=== PATIENT | female | born 1935 | race Two or more races ===

== ENCOUNTER 2019-08-21 09:22 | Emergency (ER) | payer MEDICARE, OTHER ==
[~2019-08-21] VITALS: Ht 154.9 cm; Wt 51.0 kg
--- NOTE | 2019-08-21 09:57 | NUR ---
PT MOVED TO ROOM
[2019-08-21] MEDS ORDERED: ALBUTEROL/IPRATROPIUM 2.5MG/0.5MG, 3 ML NEB ONE (10:30)
--- NOTE | 2019-08-21 10:42 | NUR ---
pt to ed for sob x2 weeks. pt was seen at for same approx 4 days ago and was dx with pna. she was told if she didn't start to feel better in 5 days, to go to the ed. pt states she hasn't been getting worse, but isn't getting better. pt connected to monitors. vss. resident to bs for assessment and orders received. labs drawn, xr complete and pt medicated per mar. no needs expressed. awaiting resutls.
[2019-08-21 10:47] LABS: BASOPHILS # (AUTO) 0.02 x10^3/uL (0-0.1); BASOPHILS % (AUTO) 0 % (0-1); EOSINOPHILS # (AUTO) 0.03 x10^3/uL (0-0.4); EOSINOPHILS % (AUTO) 0 % (1-7); LYMPHOCYTES % (AUTO) 22 % (22-44); MD NO; MEAN CORPUSCULAR HEMOGLOBIN 32.4 pg (27.0-34.8); MEAN CORPUSCULAR HGB CONC 33.2 g/dL (32.4-35.8); MEAN CORPUSCULAR VOLUME 97.5 fL (80-100); MEAN PLATELET VOLUME 6.2 fL (7.4-10.4); MONOCYTES % (AUTO) 9 % (2-9); NEUTROPHILS # (AUTO) 6.06 x10^3/uL (1.8-6.8); NEUTROPHILS % (AUTO) 69 % (42-75); PLATELET COUNT 314 x10^3/uL (130-400); RED BLOOD COUNT 4.48 x10^6/uL (3.82-5.3); RED CELL DISTRIBUTION WIDTH 13.7 % (9.6-15.2)
[2019-08-21 10:58] LABS: ANION GAP 8 mmol/L (5-15); CALCIUM 9.6 mg/dL (8.5-10.1); CHLORIDE 105 mmol/L (98-107)
[2019-08-21 11:04] LABS: ALANINE AMINOTRANSFERASE 29 U/L (12-78); ALKALINE PHOSPHATASE 83 U/L (45-117); BILIRUBIN,TOTAL 0.5 mg/dL (0.2-1.0); CREATININE 1.23 mg/dL (0.55-1.02); TROPONIN I < 0.015 ng/mL (0.000-0.045)
[2019-08-21 11:07] LABS: RAPID INFLUENZA A Negative (Negative); RAPID INFLUENZA B Negative (Negative)
[2019-08-21 11:23] VITALS: BP 132/60
--- NOTE | 2019-08-21 11:23 | NUR ---
pt resting in room with family at bs. vss. no needs expressed. call light within reach. awaiting rt tx.
[2019-08-21] MEDS ORDERED: ALBUTEROL/IPRATROPIUM 2.5MG/0.5MG, 3 ML ONE (11:54)
== END 2019-08-21 12:36 | disposition home or self-care (01) ==
LOC: ED 12:00
DX: J44.1 Chronic obstructive pulmonary disease with (acute) exacerbation (principal)
CPT/HCPCS: 36415; 71046; 80053; 83880; 84484; 85025; 87400; 94640; 99284; J7512; J7620

== ENCOUNTER 2020-03-31 18:20 | Emergency (ER) | payer MEDICARE ==
[~2020-03-31] VITALS: Ht 154.9 cm; Wt 52.3 kg
--- NOTE | 2020-03-31 18:50 | NUR ---
Pt c/o dizziness and nausea since waking up this morning. Pt has hx Vertigo, states this feels similar.Pt in bed in gown with cont spo2, bp q 30 min, side rails upx2, call light in reach, 18g iv in right wrist. pt closing her eyes because the room is spinning. Spinning started at 0700 today, n/v every 30 min.
--- NOTE | 2020-03-31 19:00 | NUR ---
REPORT OF PT FROM IRIS WEBER AND ASSUMING CARE OF PT AT THIS TIME.
[2020-03-31] MEDS ORDERED: ONDANSETRON 2MG/ML, 2ML ONE (19:16)
[2020-03-31] MEDS ORDERED: MECLIZINE CHEWABLE 25 MG TAB ONE (19:16)
--- NOTE | 2020-03-31 19:22 | NUR ---
PT MEDICATED PER MAR AT THIS TIME. PT RESTING COMFORTABLY IN [facility] WITH FAMILY AT BS. SINDY. CALL LIGHT IS WITHIN REACH.
[2020-03-31] MEDS ORDERED: MECLIZINE CHEWABLE 25 MG TAB PO ONE (19:30)
[2020-03-31] MEDS ORDERED: SODIUM CHLORIDE FLUSH 10ML SYR IVF ONE (19:30)
[2020-03-31] MEDS ORDERED: ONDANSETRON 2MG/ML, 2ML IVPush ONE (19:30)
[2020-03-31 19:36] LABS: BASOPHILS # (AUTO) 0.02 x10^3/uL (0-0.1); BASOPHILS % (AUTO) 0 % (0-1); EOSINOPHILS # (AUTO) 0.01 x10^3/uL (0-0.4); EOSINOPHILS % (AUTO) 0 % (1-7); LYMPHOCYTES # (AUTO) 1.15 x10^3/uL (1-3.4); LYMPHOCYTES % (AUTO) 14 % (22-44); MD NO; MEAN CORPUSCULAR HEMOGLOBIN 31.5 pg (27.0-34.8); MEAN CORPUSCULAR HGB CONC 32.5 g/dL (32.4-35.8); MEAN CORPUSCULAR VOLUME 96.7 fL (80-100); MEAN PLATELET VOLUME 6.8 fL (7.4-10.4); MONOCYTES # (AUTO) 0.46 x10^3/uL (0.2-0.8); MONOCYTES % (AUTO) 6 % (2-9); NEUTROPHILS % (AUTO) 80 % (42-75); PLATELET COUNT 239 x10^3/uL (130-400); RED BLOOD COUNT 4.25 x10^6/uL (3.82-5.3); RED CELL DISTRIBUTION WIDTH 12.3 % (9.6-15.2)
[2020-03-31 19:42] LABS: ALBUMIN 4.2 g/dL (3.4-5.0); ANION GAP 7 mmol/L (5-15); CALCIUM 9.5 mg/dL (8.5-10.1); CHLORIDE 109 mmol/L (98-107); CREATININE 0.96 mg/dL (0.55-1.02)
--- NOTE | 2020-03-31 19:51 | NUR ---
PT TO CT VIA [facility] AT THIS TIME.
--- NOTE | 2020-03-31 20:01 | NUR ---
PT BACK FROM CT AT THIS TIME.
--- NOTE | 2020-03-31 20:42 | NUR ---
PT D/C WITH D/C SUMMARY AND SCRIPTS. PT AND FAMILY QUESTIONS ANSWERED. PT DENIES ANY OTHER NEEDS PERTAINING TO THIS VISIT AND AMBULATES TO REGISTRATION DESK WITH STEADY GAIT FOR D/C HOME WITH FAMILY. VSS UPON PT DISCHARGE.
[2020-03-31 20:43] VITALS: BP 118/70
== END 2020-03-31 20:54 | disposition home or self-care (01) ==
LOC: ED 20:46
DX: H81.12 Benign paroxysmal vertigo, left ear (principal); R11.2 Nausea with vomiting, unspecified; J44.9 Chronic obstructive pulmonary disease, unspecified
CPT/HCPCS: 36415; 70450; 80048; 82040; 85025; 96374; 99284; J2405

== ENCOUNTER 2021-04-16 19:17 | Emergency (ER) | payer MEDICARE ==
[~2021-04-16] VITALS: Ht 154.9 cm; Wt 52.7 kg
[2021-04-16 19:46] VITALS: BP 154/62
[2021-04-16 20:30] LABS: BASOPHILS % (AUTO) 1 % (0-1); EOSINOPHILS % (AUTO) 0 % (1-7); LYMPHOCYTES % (AUTO) 15 % (22-44); MEAN CORPUSCULAR HEMOGLOBIN 31.5 pg (27.0-34.8); MEAN CORPUSCULAR HGB CONC 33.9 g/dL (32.4-35.8); MEAN PLATELET VOLUME 6.2 fL (7.4-10.4); MONOCYTES % (AUTO) 7 % (2-9); NEUTROPHILS % (AUTO) 77 % (42-75); PLATELET COUNT 240 x10^3/uL (130-400); RED CELL DISTRIBUTION WIDTH 12.7 % (9.6-15.2)
[2021-04-16 20:40] LABS: ANION GAP 5 mmol/L (5-15); CALCIUM 9.6 mg/dL (8.5-10.1); CHLORIDE 106 mmol/L (98-107); CREATININE 0.83 mg/dL (0.55-1.02)
--- NOTE | 2021-04-16 21:08 | NUR ---
Patient ambulated to ED room from triage. Labs completed out in the waiting room. Pending results. Patient in no acute distress denies needs at this time.
--- NOTE | 2021-04-16 21:08 | NUR ---
Macho coreas in [facility] - 04/16/21 at 2108 by LOCO Patient with patient ambulatory to ED room.
[2021-04-16 21:09] LABS: MICROSCOPIC INDICATED
--- NOTE | 2021-04-16 21:14 | NUR ---
Upon initial development lead. Patient is alert and oriented x4 GCS 15. Patient calm and cooperative with exam. Diffuse expiratory wheezes noted upon auscultation. Patient speaking in full sentences. In no acute distress. MD at bedside recommending DuoNeb treatment and chest x-ray. RN will administer DuoNeb breathing treatment and will continue to monitor patient's respiratory status.
[2021-04-16] MEDS ORDERED: ALBUTEROL/IPRATROPIUM 2.5MG/0.5MG, 3 ML ONE (21:17)
[2021-04-16] MEDS ORDERED: ALBUTEROL/IPRATROPIUM 2.5MG/0.5MG, 3 ML NPPB ONE (21:30)
--- NOTE | 2021-04-16 22:18 | NUR ---
Pt ambulated to bathroom with steady gait. Vladislavo saul treatment completed. Pt feeling better at this time.
--- NOTE | 2021-04-16 22:57 | NUR ---
Patient/Caregiver given discharge instructions and they have confirmed that they understand the instructions. Patient ambulatory with steady gait. NAD, all questions answered appropriately, denies additional needs at this time. No personal belongings left in room after discharge.
== END 2021-04-16 22:59 | disposition home or self-care (01) ==
LOC: ED 21:23
DX: N30.00 Acute cystitis without hematuria (principal); J45.41 Moderate persistent asthma with (acute) exacerbation; I10 Essential (primary) hypertension; J44.9 Chronic obstructive pulmonary disease, unspecified
CPT/HCPCS: 36415; 71045; 80048; 81001; 85025; 87077; 87086; 87186; 94640; 99284; J7512